=== PATIENT | male | born 1955 | race Caucasian/White ===

== ENCOUNTER 2018-08-05 08:32 | Emergency (ER) | payer MEDICAID ==
[~2018-08-05] VITALS: Ht 180.3 cm; Wt 77.1 kg
[2018-08-05 08:37] VITALS: Ht 180.3 cm; Wt 77.1 kg
[2018-08-05 09:36] LABS: BASOPHIL % 0.5 % (0-2)
[2018-08-05 09:51] LABS: CALCIUM 8.6 mg/dL (8.5-10.1); CARBON DIOXIDE 20.2 mmol/L (21-32); CHLORIDE SERUM 95 mmol/L (98-107); GFR1 > 60 mL/min; GLUCOSE SERUM 157 mg/dL (74-106); POTASSIUM SERUM 4.3 mmol/L (3.5-5.1); SODIUM SERUM 134 mmol/L (136-145)
[2018-08-05 10:03] LABS: ALBUMIN 3.8 g/dL (3.4-5.0); ALKALINE PHOSPHATASE 134 U/L (46-116); ALT/SGPT 22 U/L (16-63); AST/SGOT 24 U/L (15-37); LIPASE 148 IU/L (73-393); MAGNESIUM 1.6 mg/dL (1.8-2.4); T4(THYROXINE) 7.1 ug/dL (4.7-13.3)
[2018-08-05 10:05] LABS: AMYLASE 148 U/L (25-115); CHOLESTEROL 257 mg/dL (<200); HDL CHOLESTEROL 92 mg/dL (40-60); TOTAL PROTEIN, SERUM 8.3 g/dL (6.4-8.2)
[2018-08-05 10:11] LABS: PLATELET COUNT 431 x10^3mcL (130-400)
[2018-08-05 10:43] LABS: UA SPECIFIC GRAVITY >=1.030 (1.005-1.035); microscopic required? YES; urine erythrocyte 1+ (NEGATIVE)
[2018-08-05 11:41] LABS: AMPHETAMINE QUAL UR NONE DETECTED (See below)
[2018-08-05 12:51] VITALS: BP 127/88
== END 2018-08-05 12:51 | disposition home or self-care (01) ==
LOC: ED 08:32
PROVIDERS: Emergency Medicine
DX: S01.112A Laceration without foreign body of left eyelid and periocular area, initial encounter (principal); S05.12XA Contusion of eyeball and orbital tissues, left eye, initial encounter; S80.211A Abrasion, right knee, initial encounter; S09.8XXA Other specified injuries of head, initial encounter; F10.129 Alcohol abuse with intoxication, unspecified; F14.20 Cocaine dependence, uncomplicated; F32.9 Major depressive disorder, single episode, unspecified; I10 Essential (primary) hypertension
CPT/HCPCS: 82962; G0480; J2405; J7030; Q0092